=== PATIENT | female | born 1940 | race Caucasian/White ===

== ENCOUNTER → 2017-04-13 | Outpatient (CLI) | payer MEDICARE, OTHER | END | disposition home or self-care (01) | LOC: GMAH 16:32 | PROVIDERS: ATTEND Family Medicine | DX: N30.00 Acute cystitis without hematuria (principal) ==

== ENCOUNTER → 2017-08-10 | Outpatient (CLI) | payer MEDICARE, OTHER | END | disposition home or self-care (01) | LOC: YCFC.O 08:23 | PROVIDERS: ATTEND Anesthesiology Pain Medicine | DX: Z79.891 Long term (current) use of opiate analgesic (principal) ==

== ENCOUNTER 2017-08-31 05:42 | Day surgery (SDC) | payer MEDICARE, OTHER ==
[2017-08-31] MEDS ORDERED: SODIUM BICARBONATE VIAL 50 MEQ/50 ML VIAL ONE (11:30)
[2017-08-31] MEDS ORDERED: SODIUM CHLORIDE 0.9% 10 ML VIAL ONE (11:31)
[2017-08-31] MEDS ORDERED: LIDOCAINE 1% MPF 5 ML VIAL ONE (11:31)
[2017-08-31] MEDS ORDERED: methylPREDNISolone ACETATE 80 MG/ML VIAL ONE (11:31)
[2017-08-31 11:35] VITALS: O2SAT 98
[2017-08-31] MEDS ORDERED: BUPIVACAINE 0.25% INJ 30 ML VIAL INJ ONE (11:57)
[2017-08-31 13:12] VITALS: BP 130/80; TEMP 96.8
== END 2017-08-31 13:00 | disposition home or self-care (01) ==
LOC: AMB 05:42
PROVIDERS: ATTEND Anesthesiology Pain Medicine
DX: M54.5 Low back pain (principal); M47.817 Spondylosis without myelopathy or radiculopathy, lumbosacral region
CPT/HCPCS: 64493; 76000; J1030

== ENCOUNTER → 2018-01-13 | Outpatient (CLI) | payer OTHER | LOC: GMAH 11:04 | PROVIDERS: ATTEND Family Medicine | DX: I10 Essential (primary) hypertension (principal); E78.2 Mixed hyperlipidemia ==

== ENCOUNTER → 2018-08-25 | Outpatient (CLI) | payer OTHER ==
--- NOTE | 2018-08-26 08:23 | US ---
US THYROID CLINICAL STATEMENT: E04.9. . No palpable mass, no prior thyroid surgery, no prior thyroid treatment. COMPARISON: None FINDINGS: Size right thyroid lobe: 4.5 x 2.2 x 2.0 cm Size left thyroid lobe: 5.0 x 1.4 x 1.1 cm Size isthmus: 0.16 cm Estimated total number of nodules greater than or equal to 1 cm: 3. Multiple nodules in the thyroid gland bilaterally with heterogeneous echotexture. Nodule 1: Size: 1.6 x 1.1 x 1.5 cm Location: Right Mid Composition: solid or almost completely solid: 2 points Echogenicity: isoechoic: 1 point Shape: wider than tall: 0 points Margins: smooth: 0 points. Vascularity is abutting the margins. Echogenic foci: none: 0 points ACR Total Points: 3; ACR TI-RADS risk category: TR3 - mildly suspicious nodule. Nodule 2: Size: 1.0 x 1.0 x 1.0 cm Location: Right Lower Composition: solid or almost completely solid: 2 points Echogenicity: hypoechoic: 2 points Shape: wider than tall: 0 points Margins: smooth: 0 points. Hypoechoic rim. Vascularity abutting the margin. Echogenic foci: none: 0 points ACR Total Points: 4; ACR TI-RADS risk category: TR4 - moderately suspicious nodule. Nodule 3: Size: 1.5 x 0.8 x 0.6 cm Location: Left Mid Composition: cystic or completely cystic: 0 points Echogenicity: very hypoechoic: 3 points Shape: wider than tall: 0 points Margins: smooth: 0 points Echogenic foci: none: 0 points ACR Total Points: 3; ACR TI-RADS risk category: TR3 - mildly suspicious nodule. Nodule 4: Size: 0.9 x 0.8 x 0.6 cm Location: Left Lower Composition: solid or almost completely solid: 2 points Echogenicity: hypoechoic: 2 points Shape: wider than tall: 0 points Margins: smooth: 0 points Echogenic foci: none: 0 points ACR Total Points: 4; ACR TI-RADS risk category: TR4 - moderately suspicious nodule. No distinct solid mass or cyst in the surrounding soft tissues. No large calcifications or parenchymal edema. No overlying skin changes. No abnormal vascularity. IMPRESSION: 1. Nodule 1: ACR TI-RADS 2017 Category TR3. Recommend: Follow-up ultrasound in 1 year. This is according to [employer] guidelines following ACR TI-RADS 2017 recommendations. Please see below.* 2. Nodule 2: ACR TI-RADS 2017 Category TR 4. Recommend: Follow-up ultrasound in one year. 3. Nodule 3: ACR TI-RADS 2017 Category TR 3. Recommend: Follow-up ultrasound in 1 year. 4. Nodule 4: ACR TI-RADS 2017 Category TR 4. Recommend: No further follow-up.. Soft tissues around the thyroid gland are unremarkable. *ACR TI-RADS 2017 Recommendations: TR1: No FNA or follow up TR2: No FNA or follow up TR3: FNA if >/= 2.5 cm, follow up if 1.5 - 2.4 cm in 1, 3, and 5 years TR4: FNA if >/= 1.5 cm, follow up if 1.0 - 1.4 cm in 1, 2, 3, and 5 years TR5: FNA if >/= 1.0 cm, follow up if 0.5 - 0.9 cm every year for 5 years ACR TI-RADS recommends that no more than two nodules with the highest ACR TI-RADS total point should be biopsied and no more than four nodules should be followed. Electronically signed by: Simeon Arce MD 08/26/2018 8:22 AM [facility]
== END ==
LOC: US 10:30
PROVIDERS: ATTEND Family Medicine
DX: E04.9 Nontoxic goiter, unspecified (principal)

== ENCOUNTER → 2018-09-03 | Outpatient (CLI) | payer OTHER ==
--- NOTE | 2018-09-03 12:59 | CT ---
EXAM DESCRIPTION: Chest w/o Contrast : Computed Tomography. CLINICAL HISTORY: ABNORMAL PULMONARY FUNCTION STUDY, PULMONARY NODULE SUSPECTED COMPARISON: CT scan of the abdomen and pelvis on the same visit. CT scan of the chest and thorax 03/01/2010. TECHNIQUE: Spiral-axial scans at 5 x 5 mm intervals through the lungs and thorax without IV contrast. 2.5 x 5 mm lung algorithm axial reconstructions. Coronal and sagittal 2.0 Mm reconstructions. Total Exam DLP: 833.66 mGy-cm. This exam was performed according to our departmental dose-optimization program which includes automated exposure control, adjustment of the mA and/or kV according to patient size and/or use of iterative reconstruction technique; to reduce radiation dose to as low as reasonably achievable (ALARA). Nodule measurements under 10 mm are given as mean value of 3 axes diameters. FINDINGS: Lungs and large airways: 4 mm linear density associated with the anterior right horizontal fissure at the base of the right lower lobe on axial series 302, image 53. Stable since the prior study. Scarring in the inferior lingula. Mosaic densities in the bilateral lower lobe posterior recess is more on the left than right. Also seen on the prior study. No abnormal nodules. No masses or infiltrates bilaterally. Tracheobronchial cartilage calcification. Pleural spaces: No pleural effusion bilaterally or pneumothorax. Mediastinum and Mariia: Evaluation limited due to lack of IV contrast venous line in the left innominate vein terminating in the superior vena cava. No large dominant soft tissue masses or enlarged lymph nodes. Great vessels and Heart: Evaluation limited due to lack of IV contrast.. Coronary artery calcifications and stents. Atherosclerotic calcification in the proximal brachiocephalic vessels, aortic arch, and descending thoracic aorta. Soft tissues of neck base, axillae, and chest wall: Evaluation limited due to lack of IV contrast. Nodularity in the lower outer quadrant of the right breast. Contralateral left breast lower outer quadrant only partially visualized but some fibroglandular densities are noted. 1 cm nodule in the mid to upper right thyroid lobe is incompletely visualized. Upper abdomen: Please see abdominal pelvis CT scan report. Osseous structures: Spondylosis at multiple levels of the thoracic spine. No focal lytic or blastic lesions. IMPRESSION: 1. Small linear density associated with the right horizontal fissure at the base of the right upper lobe is chronic. Chronic densities in the left lower lobe and inferior lingula. No abnormal nodules, masses or infiltrates bilaterally. No pleural effusion or pneumothorax. 2. Venous access device tip is in customary location in the superior vena cava. Coronary artery calcifications and stents. 3. Questionable nodular densities lower outer quadrant of the right breast. Contralateral quadrant of the left breast is not completely visualized. Consider digital bilateral diagnostic mammography if patient has not had digital mammography in the past year. 1.0 cm incidental thyroid nodule No follow-up imaging is recommended. Reference: J Am Jess Radiol. 2015 Nov;12(2): 143-50 Electronically signed by: Simeon Arce MD 09/03/2018 12:58 PM [facility]
--- NOTE | 2018-09-03 13:35 | CT ---
EXAM DESCRIPTION: Abdomen w/o Contrast. Computed tomography. CLINICAL HISTORY: UNSPECIFIED ABD PAIN. History of previous abdominal cancer. COMPARISON: None. TECHNIQUE: Spiral-axial scans at 5 x 5 mm intervals through the abdomen and pelvis. Coronal and sagittal 2.0 mm reconstructions. No IV or oral contrast. Total DLP: 833.66 mGy - m2. This exam was performed according to our departmental dose-optimization program which includes automated exposure control, adjustment of the mA and/or kV according to patient size and/or use of iterative reconstruction technique; to reduce radiation dose to as low as reasonably achievable (ALARA). FINDINGS: Upper Abdominal organs: 1.5 cm low-density lesion in the inferior right liver is cystlike and stable. Stomach and other solid organs are negative. Calcifications or surgical hardware abutting the greater curvature of the stomach is stable. Pancreas/Gallbladder/Ducts: Surgical clips in the gallbladder fossa without fluid. Pancreas low-density and atrophic with prominent calcification of the adjacent splenic artery. Minimal density in the peripancreatic fat extending inferiorly in the midline anterior to the aorta which is stable. Common bile duct is stable Kidneys: Marked calcification of the left renal artery with significant narrowing. No radiodense stones or hydronephrosis bilaterally. Perinephric densities bilaterally symmetric and stable. Mesentery: No free fluid or free air. No significant fatty stranding or fascial thickening. Aorta: Moderate atherosclerotic calcification more distally. Also atherosclerotic calcifications in the celiac axis. Normal caliber of the outer wall. Small Bowel: Normal caliber with minimal gas. Terminal Ileum/Cecum: Minimal distention of the cecum with fecal material otherwise unremarkable. Normal caliber of the appendix. Normal surrounding density. Colon: Minimal distention of the ascending colon with fecal material which continues into the transverse colon descending colon and proximal sigmoid. No air-fluid levels. No complications. Spine and pelvic bone: Chronic depression of the T11 superior endplate but no significant retropulsion. Facet arthropathy at several levels. Hypertrophy of the superior lateral acetabular facet margins with minimal joint space narrowing. Minimal sclerosis bilateral facets of the SI joints. Pelvic soft tissues: Vaginal cuff is unremarkable. No radiodense stones in the urinary bladder. Abdominal Wall/Back Soft Tissues: Minimal anterior bulging of the midline abdominal wall at the umbilicus but no herniation. IMPRESSION: 1. No inflammatory changes or mass or fluid collections in the peritoneal or retroperitoneal cavity. Stable hepatic cyst. Stable postsurgical changes or calcification greater curvature of the stomach. 2. Atrophy of the pancreas with fatty infiltration. Stable since the prior study. There history of diabetes or other pancreatic disorder? 3. Constipation of the proximal mid and part of the distal colon. No air-fluid levels or obstruction. 4. Old depression of the T11 superior endplate. Arthrosis in the lumbar spine facets. Hypertrophy of the bilateral acetabular superior lateral facets could be causing over coverage of the femoral heads and pincer-type femoral acetabular impingement. Electronically signed by: Simeon Arce MD 09/03/2018 1:33 PM [facility]
== END ==
LOC: CT 09:50
PROVIDERS: ATTEND Family Medicine
DX: R10.9 Unspecified abdominal pain (principal); K59.00 Constipation, unspecified; K86.89 Other specified diseases of pancreas; E04.1 Nontoxic single thyroid nodule; R91.8 Other nonspecific abnormal finding of lung field; I25.10 Atherosclerotic heart disease of native coronary artery without angina pectoris; R94.2 Abnormal results of pulmonary function studies; M47.896 Other spondylosis, lumbar region; Z95.828 Presence of other vascular implants and grafts

== ENCOUNTER → 2019-05-10 | Outpatient (CLI) | payer OTHER | LOC: GMAH 10:13 | PROVIDERS: ATTEND Family Medicine | DX: I10 Essential (primary) hypertension (principal); E78.2 Mixed hyperlipidemia ==

== ENCOUNTER → 2019-07-14 | Outpatient (CLI) | payer OTHER ==
--- NOTE | 2019-07-18 14:34 | MAM ---
EXAM DESCRIPTION: 3D Screening BILATERAL Digital Mammography. CLINICAL HISTORY: 79 years Female annual screening . No complaints. No personal or family history of breast cancer. Menarche age 17. Childbirth. Postmenopausal. No HRT. Lifetime risk of developing breast cancer (Tyrer-Cuzick model)(%): 2.7. COMPARISON: Baseline study at this facility.. No prior reports available. TECHNIQUE: Bilateral CC and MLO projection full-field images, digital tomosynthesis mammographic technique. Bilateral digital 2-D full-field MLO images. CAD not available for tomosynthesis or 2-D images. FINDINGS: The breast parenchymal density pattern is: Scattered areas of fibroglandular density. No skin thickening or nipple retraction. Bilateral solitary microcalcifications. Calcified cyst in the upper lateral right breast and cluster of benign type calcifications posterior lateral left breast. Architectural distortion in the lower outer quadrant of the posterior third of the left breast at the 4:00 position near the chest wall. Microcalcifications are seen in the adjacent soft tissues. Focal asymmetry in the posterior third of the right breast near the chest wall, 8:00 to 9:00 position. IMPRESSION: BI-RADS CATEGORY: 0 - INCOMPLETE- Need additional imaging evaluation. FOLLOW-UP: Recall for additional imaging: Bilateral LM projection full-field 2-D and tomosynthesis images. Targeted bilateral breast ultrasound of the regions of interest.. Written communication concerning the IMPRESSION and Follow-up, will be mailed to the patient and referring health care provider. Electronically signed by: Simeon Arce MD 07/18/2019 2:32 PM CDT
== END ==
LOC: MAMMO 14:00
PROVIDERS: ATTEND Family Medicine
DX: Z12.31 Encounter for screening mammogram for malignant neoplasm of breast (principal)

== ENCOUNTER → 2019-09-05 | Outpatient (CLI) | payer OTHER ==
--- NOTE | 2019-09-06 17:27 | MRI ---
EXAM DESCRIPTION: Lumbar Spine w/o Contrast : Magnetic Resonance Imaging. CLINICAL HISTORY: Radiculopathy COMPARISON: Lumbar spine radiographs for August 2019. TECHNIQUE: Multiplanar, multiple standard sequences, non contrast MRI, lumbar spine. FINDINGS: L5-S1: The disc is well visualized on axial T2 series 501, image 3. Normal signal in the disc with disc space maintained. Minimal ligament thickening with normal facets. Canal patent with mild foraminal narrowing. L4-L5: Disc desiccation with disc space maintained. Posterior ligament thickening. Bilateral facet arthrosis. Mild canal narrowing. Mild bilateral foraminal narrowing. L3-L4: Minimal disc desiccation with no posterior disc bulge. Minimal ligament thickening. Arthrosis left facet. Canal patent minimal narrowing left foramen. L2-L3: Normal signal in the disc with disc space maintained. Posterior elements unremarkable. Canal and foramina are patent. L1-L2: Normal signal in the disc with disc space maintained. Posterior elements unremarkable. Canal and foramina are patent. T12-L1: Normal signal in the disc with disc space maintained. Posterior elements unremarkable. Canal and foramina are patent. Conus terminates at L1. No significant alignment abnormalities. Paravertebral soft tissues minimal paraspinal muscle atrophy.. Distal cord normal signal and caliber. Heterogeneous marrow signal in the remaining vertebral bodies and the posterior elements. Vertebral bodies are not compressed at any level. IMPRESSION: 1. No significant lumbar spine abnormalities for patient's age. Minimal disc desiccation at some levels. Minimal hypertrophic changes in posterior ligaments and facet arthrosis. No canal or foraminal stenosis. No vertebral body compression Electronically signed by: Simeon Arce MD 09/06/2019 5:25 PM [facility]
== END | disposition home or self-care (01) ==
LOC: MRI 14:01
PROVIDERS: ATTEND Family Medicine
DX: M54.16 Radiculopathy, lumbar region (principal)

== ENCOUNTER → 2019-12-01 | Outpatient (CLI) | payer OTHER | LOC: ECHO 09:59 | PROVIDERS: ATTEND Family Medicine | DX: R06.02 Shortness of breath (principal); I51.7 Cardiomegaly ==

== ENCOUNTER → 2019-12-30 | Outpatient (CLI) | payer OTHER | DX: E04.2 Nontoxic multinodular goiter (principal) ==

== ENCOUNTER → 2020-06-08 | Outpatient (CLI) | payer OTHER | END | disposition home or self-care (01) | LOC: GMA MATASK 10:28 | PROVIDERS: ATTEND Family Medicine | DX: I10 Essential (primary) hypertension (principal); E78.2 Mixed hyperlipidemia ==

== ENCOUNTER → 2020-07-13 | Outpatient (CLI) | payer OTHER | LOC: GMAE 13:05 | PROVIDERS: ATTEND Family Medicine | DX: R00.0 Tachycardia, unspecified (principal) ==

== ENCOUNTER → 2020-07-16 | Outpatient (CLI) | payer OTHER ==
--- NOTE | 2020-07-16 14:53 | MRI ---
EXAM DESCRIPTION: Brain w/o Contrast: MRI. CLINICAL HISTORY: DIZZINESS AND GIDDINESS COMPARISON: CT scan of the head July 12 TECHNIQUE: Multiplanar, high-field MRI unit, multiple diffusion sequences, multiple conventional sequences without contrast. FINDINGS: Bilateral confluent and focal regions of hyperintense FLAIR and T2-weighted signal in the periventricular white matter and sub-cortical white matter involvement of the frontoparietal and occipital lobes with relative sparing of the temporal lobes.. No hemorrhage, no cerebral edema, no midline shift.. Small foci of similar signal in the posterior bilateral basal ganglia. No hemorrhage, no cerebral edema, no mass-effect normal signal in the brainstem and cerebellar hemispheres.. Concordance of the diffusion and non-diffusion sequences with no diffusion restriction. Cortical sulci, ventricles, and other CSF spaces, and the subdural spaces are normally configured for patients age. No effacement or displacement. No midline shift. No extra-axial hemorrhage. Normal flow signal void in the major vessels of the [place], and the venous sinuses. IACs are symmetric bilaterally. Normal signal in the bilateral mastoid air cells. No mass effect in the bilateral cerebellopontine angles. Pituitary gland occupies only the base of the sella. Base of the cerebellar tonsils is just above the foramen magnum. Minimal mucoperiosteal thickening in the paranasal sinuses with no air-fluid levels.. The bony calvarium is intact. IMPRESSION: 1. Bilateral periventricular white matter and subcortical white matter signal changes relatively symmetric, and most likely related to aging and cerebral microvascular disease. No hemorrhage, no mass effect, no diffusion restriction, and no cerebral edema. No extra-axial hemorrhage or fluid collection. Similar findings in the bilateral posterior basal ganglia. 2. Minimal chronic paranasal sinusitis. Small pituitary gland. Electronically signed by: Simeon Arce MD 07/16/2020 2:51 PM CDT
== END ==
LOC: MRI 11:05
PROVIDERS: ATTEND Family Medicine
DX: R90.82 White matter disease, unspecified (principal); J32.9 Chronic sinusitis, unspecified; E23.7 Disorder of pituitary gland, unspecified; R51 Headache; H93.13 Tinnitus, bilateral

== ENCOUNTER 2020-07-29 22:20 | Emergency (ER) | payer OTHER ==
--- NOTE | 2020-07-29 22:33 | ED.PDOC ---
History of Present Illness - General Time Seen by Provider: 07/29/20 22:22 Source: patient, RN notes reviewed, Vital Signs reviewed, EMS notes reviewed, family Exam Limitations: no limitations - History of Present Illness Initial Comments: 80 yo F with hx of cancer, anxiety comes in with abrupt onset of shortness of breath. Daughter said 4 hours ago when she left she was in her normal state. Patient states she has been nauseated all day. No emesis, no abdominal pain, no chest pain. no hx of blood clots. no recent travel or immobilization. Patient states the symptoms started after her daughter left around 630 PM. no syncope. In EMS she was saturating about 80% on RA. she denies any aspiration or choking. Allergies/Adverse Reactions: Allergies Codeine Allergy (Verified 07/12/20 08:22) Home Medications: Ambulatory Orders Fluoxetine HCl 40 mg PO DAILY 07/12/20 Lovastatin 40 mg PO BEDTIME 07/12/20 amLODIPine BESYLATE [Norvasc] 5 mg PO DAILY 07/12/20 Mirtazapine [Remeron Soltab] 15 mg PO 07/30/20 Propranolol HCl [Propranolol HCl ER] 60 mg PO 07/30/20 Review of Systems - Review of Systems Constitutional: Denies: chills, fever, malaise EENTM: Denies: blurred vision, double vision, throat pain, throat swelling, mouth pain Respiratory: States: short of breath, wheezing. Denies: cough, orthopnea Cardiology: Denies: chest pain, edema, palpitations, syncope Gastrointestinal/Abdominal: States: nausea. Denies: abdominal pain, constipation, diarrhea, vomiting Genitourinary: Denies: dysuria, frequency, hematuria Musculoskeletal: Denies: back pain, joint pain, joint swelling, muscle pain Skin: Denies: dryness, lesions, rash Neurological: States: anxiety. Denies: headache, numbness, paresthesia, tingling, tremors, weakness Endocrine: Denies: unexplained weight gain, unexplained weight loss Hematologic/Lymphatic: Denies: blood clots, easy bleeding, easy bruising Past Medical History (General) - Patient Medical History Hx Seizures: No Hx Stroke: Yes Hx Dementia: No Hx Asthma: No Hx of COPD: No Hx Cardiac Disorders: No Hx Congestive Heart Failure: No Hx Pacemaker: No Hx Hypertension: Yes Hx Diabetes: No Hx Gastroesophageal Reflux: No Hx Renal Disease: No Hx Cancer: Yes - stomach Hx of HIV: No Hx Hepatitis C: No Hx MRSA: No - Vaccination History Hx Tetanus, Diphtheria Vaccination: Yes Hx Influenza Vaccination: Yes Hx Pneumococcal Vaccination: Yes - Social History Hx Tobacco Use: No Hx Alcohol Use: No Family Medical History - Family History Mother Family History: Unknown Living Status: Physical Exam - Physical Exam General Appearance: Alert, Anxious, No apparent distress, Well Developed, Well Groomed, Well Hydrated, Well Nourished Eyes, Ears, Nose, Throat Exam: PERRL/EOMI, normal ENT inspection Neck: non-tender, full range of motion, supple, normal inspection Respiratory: chest non-tender, no respiratory distress, no accessory muscle use, rales, wheezing, other - tachypnea Cardiovascular/Chest: normal peripheral pulses, regular rate, rhythm, no edema, no gallop, no JVD, no murmur Peripheral Pulses: radial,right: 2+, radial,left: 2+ Gastrointestinal/Abdominal: normal bowel sounds, non tender, soft, no organomegaly Rectal Exam: deferred Extremity: normal range of motion, non-tender, normal inspection, no pedal edema, no calf tenderness, normal capillary refill Neurologic: no motor/sensory deficits, alert, normal mood/affect, oriented x 3 Skin Exam: normal color, warm/dry Progress - Progress Progress: 07/29/20 22:34 partial ddx: aspiration, pneumonia, PE, CHF, anxiety. 07/29/20 23:20 cxr shows diffuse bilateral pneumonia. Will give decadron, albuterol and get blood cultures. will give ceftriaxone and doxycycline instead of azithromycin due to prolong qt on ekg. Informed patient I would like to transfer her, but she is currently refusing. will let her discuss with daughter. PSI score 108. 07/30/20 2330 Discussed with daughter patient okay for transfer. Called [facility], who felt patient does not meet criteria for transfer. Discuss with hospitalist here, will get additional testing. pending repeat ABG and CTA. Patient got up to use bedside commode and saturations drop to 80% on 15 L non- rebreather. Patient has been put on bipap. Next step would be intubation. Family understands and agrees to plan. [facility] has no beds. Will call [facility]. repeat blood gas shows worsening o2 sat on bipap from 63 to 59. Patient does not appear to be in resp distress however, due to critical condition, will plan on flying patient to [place]. patients vss stable saturating 94% on bipap. Repeat covid negative. will transfer to . The data reviewed when caring for this patient included: nurse notes, prior records, etc. The history and assessments from nurses notes were reviewed and considered, and the patient's home medication list was also reviewed and considered. My assessment and the results of testing completed here in the ED were discussed with the patient/family. All questions were answered, and they express understanding of my assessment and the plan. Carmela Weiss DO #[id number] - Results/Orders Results/Orders: 07/29/20 22:30 Arterial Blood Gas Stat EKG STAT 07/29/20 22:45 Albuterol Sulfate Nebs [Proventil Nebs] 2.5 mg NEB CONTINUOUS 07/29/20 23:02 BLOOD CULTURE Stat 07/30/20 00:05 ABG [Arterial Blood Gas] Stat 07/30/20 00:11 Isolation:Airborne ONCE CTA Chest [CT] Stat 07/30/20 00:15 Pulse Ox, Continuous Monitoring STAT 07/30/20 00:30 RESPIRATORY PANEL 2 Stat 07/30/20 01:39 ABG [Arterial Blood Gas] Stat 07/30/20 02:03 Sodium Chloride 0.9% 1000ML [Ns 1000 ml] 1,000 ml IVS .QD 07/31/20 00:15 Pulse Ox, Continuous Monitoring STAT 08/01/20 00:15 Pulse Ox, Continuous Monitoring STAT Laboratory Results WBC 25.4 K/mm3 (4.8-10.8) H* 07/29/20 22:25 RBC 4.89 M/mm3 (4.20-5.40) 07/29/20 22:25 Hgb 13.8 gm/dL (12.0-16.0) 07/29/20 22:25 Hct 41.5 % (36.0-47.0) 07/29/20 22:25 MCV 84.8 fl (81.0-99.0) 07/29/20 22:25 MCH 28.1 pg (27.0-31.0) 07/29/20 22:25 MCHC 33.2 g/dL (33.0-37.0) 07/29/20 22:25 RDW 15.6 % (11.5-14.5) H 07/29/20 22:25 Plt Count 355 K/mm3 (130-400) 07/29/20 22: MPV 10.6 fl (7.40-10.4) H 07/29/20 22:25 Absolute Neuts (auto) Not Reportable 07/29/20: Absolute Lymphs (auto) Not Reportable 07/29/20: Absolute Monos (auto) Not Reportable 07/29/20: Absolute Eos (auto) Not Reportable 07/29/20 22:25 Total Counted Cancelled 07/29/20: Neutrophils % Not Reportable 07/29/20: Neutrophils % (Manual) 89.0 % (42.0-78.0) H 07/29/20: Neutrophils % (Manual) Cancelled 07/29/20:25 Lymphocytes % Not Reportable 07/29/20: Lymphocytes % (Manual) 8.0 % 07/29/20: Lymphocytes % (Manual) Cancelled 07/29/20 22:25 Monocytes % Not Reportable 07/29/20: Monocytes % (Manual) 3.0 % 07/29/20:25 Monocytes % (Manual) Cancelled 07/29/20: Eosinophils % Not Reportable 07/29/20:25 Baso PT 10.1 SECONDS (9.0-10.9) 07/29/20: INR 1.02 (0.9-1.15) 07/29/20: PTT (SP) 27.6 SECONDS (21.8-31.6) 07/29/20 22: D-Dimer, Quantitative 727.0 ng/ml (131-400) H* 07/29/20 22:25 Sodium 139 mmol/L (135-145) 07/29/20 22:25 Potassium 3.7 mmol/L (3.6-5.0) 07/29/20 22:25 Chloride 107 mmol/L (101-111) 07/29/20 22: Carbon Dioxide 20 mmol/L (21-31) L 07/29/20 22: Anion Gap 15.7 (12-18) 10/11/20 22:25 BUN 13 mg/dL (7-18) 07/29/20 22:25 Creatinine 0.83 mg/dL (0.6-1.3) 07/29/20 22:25 BUN/Creatinine Ratio 15.7 (10-20) 07/29/20 22:25 Random Glucose 132 mg/dL (70-105) H 07/29/20 22:25 Serum Osmolality 279.5 mOsm/L (275-295) 07/29/20 22:25 Lactic Acid 1.5 mmol/L (0.5-2.2) 07/29/20 23:00 Calcium 9.2 mg/dL (8.4-10.2) 07/29/20 22:25 Total Bilirubin 0.9 mg/dL (0.2-1.0) 07/29/20 22:25 AST 23 IU/L (10-42) 07/29/20 22:25 ALT 22 IU/L (10-60) 07/29/20 22:25 Alkaline Phosphatase 65 IU/L (42-121) 07/29/20 22:25 LD Total 176 IU/L (91-180) 07/30/20 00:30 Creatine Kinase 33 IU/L (26-140) 07/30/20 00:30 Troponin I 0.03 ng/mL (0.01-0.05) 07/29/20 22:25 C-Reactive Protein 20.1 mg/dL (0-1.0) H* 07/30/20 00:30 B-Natriuretic Peptide 906.0 pg/ml (0-100) H* 07/29/20 22:25 Serum Total Protein 6.9 gm/dL (6.4-8.2) 07/29/20 22:25 Albumin 3.3 g/dl (3.2-5.5) 07/29/20 22:25 Globulin 3.6 gm/dL (2.3-3.5) H 07/29/20 22:25 Albumin/Globulin Ratio 0.9 (1.1-1.9) L 07/29/20 22:25 Lipase 22 U/L (22-51) 07/29/20 22:25 Urine Color Yellow (Yellow) 07/30/20 01:00 Urine Appearance Clear (Clear) 07/30/20 01:00 Urine pH 7.0 (4.5-7.8) 07/30/20 01:00 Ur Specific [place] 1.020 (1.005-1.030) 07/30/20 01:00 Urine Protein 30 mg/dL 07/30/20 01:00 Urine Glucose (UA) Negative mg/dL (Negative) 07/30/20 01:00 Urine Ketones Trace mg/dL (NEGATIVE) 07/30/20 01:00 Urine Blood Negative (Negative) 07/30/20 01:00 Urine Nitrite Negative 07/30/20 01:00 Urine Bilirubin Negative (NEGATIVE) 07/30/20 01:00 Urine Urobilinogen 0.2 mg/dL (0.2-1.0) 07/30/20 01:00 Ur Leukocyte Esterase Negative (Negative) 07/30/20 01:00 Urine RBC 0 /hpf 07/30/20 01:00 Urine WBC 1-3 /hpf 07/30/20 01:00 Ur Epithelial Cells 0-1 /hpf 07/30/20 01:00 Urine Bacteria 0 07/30/20 01:00 - EKG/XRAY/CT EKG: Sinus Comments: LAE, porlon qt, motion artificat, poor r wave progression, no acute stemi XRAY: chest - bilateral multifocal infiltrates. - Consult/PCP Time Called: 23:20 Consult/PCP: discussed with [facility] in [place] who does not feel patient needs transport Consult Reason/Comments: will discuss with hospitalist. Departure - Departure Clinical Impression: Hypoxemia Pneumonia Qualifiers: Pneumonia type: due to unspecified organism Laterality: bilateral Lung location: unspecified part of lung Qualified Code(s): J18.9 - Pneumonia, unspecified organism Time of Disposition: 02:11 Disposition: Transfer to Hospital Referrals: DAPHNEY GUERRA MD [Primary Care Provider] - 1-5 Days Home Medications: Ambulatory Orders Fluoxetine HCl 40 mg PO DAILY 07/12/20 Lovastatin 40 mg PO BEDTIME 07/12/20 amLODIPine BESYLATE [Norvasc] 5 mg PO DAILY 07/12/20 Mirtazapine [Remeron Soltab] 15 mg PO 07/30/20 Propranolol HCl [Propranolol HCl ER] 60 mg PO 07/30/20 Decision To Admit - Decistion To Admit Decision to Admit Date: 07/30/20 Decision to Admit Time: 23:38 Transfer to Outside Facility - Transfer Information Decision to Transfer Date: 07/29/20 Decision to Transfer Time: 23:20 Accepting Facility: [place]
[2020-07-29] MEDS ORDERED: ONDANSETRON INJ 4 MG/2 ML VIAL IV ONE (22:34)
[2020-07-29] MEDS ORDERED: ONDANSETRON INJ 4 MG/2 ML VIAL ONE (22:34)
[2020-07-29] MEDS ORDERED: ALBUTEROL SULFATE 2.5 MG/3 ML VIAL NEB SCH (22:45)
[2020-07-29] MEDS ORDERED: DEXAMETHASONE INJ 10 MG/ML VIAL IV ONE (22:55)
--- NOTE | 2020-07-29 23:03 | RAD ---
EXAM DESCRIPTION: XR Chest,1 View CLINICAL HISTORY: sob TECHNIQUE: Single frontal view of the chest is submitted. COMPARISON: 6 11/21/2013 FINDINGS: Heart: The cardiothoracic silhouette is within normal limits. Lungs: Multifocal opacities within the lungs bilaterally, right greater than left. Mediastinum: Thoracic aortic atherosclerosis. Pleura: Blunting of the left costophrenic angle. Bones: Intact Upper abdomen: Unremarkable IMPRESSION: Multifocal infiltrates bilaterally. Possible small left pleural effusion. Electronically signed by: Sonam Diallo MD 07/29/2020 11:01 PM CDT
[2020-07-29] MEDS ORDERED: cefTRIAXone SODIUM 2 GM in SODIUM CHL 0.9% 100ML MINI-BAG 100 ML IVPB ONE (23:19)
[2020-07-29] MEDS ORDERED: DOXYCYCLINE HYCLATE IV 100 MG in SODIUM CHLORIDE 0.9% 250ML 250 ML IVPB ONE (23:20)
[2020-07-29] MEDS ORDERED: LORazepam 0.5 MG TAB PO ONE (23:21)
[2020-07-30 01:32] VITALS: TEMP 98.7
[2020-07-30] MEDS ORDERED: SODIUM CHLORIDE 0.9% 1000ML 1,000 ML IVS PRN (02:03)
[2020-07-30 04:58] VITALS: BP 155/76; O2SAT 94
== END 2020-07-30 04:50 | disposition short-term general hospital (02) ==
LOC: ER 22:20
DX: J18.9 Pneumonia, unspecified organism (principal); R09.02 Hypoxemia; I10 Essential (primary) hypertension; F41.9 Anxiety disorder, unspecified; Z85.028 Personal history of other malignant neoplasm of stomach; Z86.73 Personal history of transient ischemic attack (TIA), and cerebral infarction without residual deficits; Z79.899 Other long term (current) drug therapy; Z88.5 Allergy status to narcotic agent; Z20.828 Contact with and (suspected) exposure to other viral communicable diseases
CPT/HCPCS: 36600; 71045; 80053; 81001; 82550; 82803; 82805; 83605; 83615; 83690; 83880; 84484; 85025; 85379; 85610; 85730; 86140; 87040; 87486; 87581; 87633; 87635; 93005; 94644; 94660; J0696; J1100; J2405; J7050; J7611

== ENCOUNTER → 2020-08-17 | Outpatient (CLI) | payer OTHER | LOC: BFHH 15:32 | PROVIDERS: ATTEND Family Medicine | DX: I48.91 Unspecified atrial fibrillation (principal); Z51.81 Encounter for therapeutic drug level monitoring ==

== ENCOUNTER → 2020-08-23 | Outpatient (CLI) | payer OTHER | LOC: BFHH 13:40 | PROVIDERS: ATTEND Family Medicine | DX: I11.0 Hypertensive heart disease with heart failure (principal); I50.33 Acute on chronic diastolic (congestive) heart failure ==

== ENCOUNTER → 2020-08-31 | Outpatient (CLI) | payer OTHER | LOC: BFHH 12:01 | PROVIDERS: ATTEND Family Medicine | DX: I50.9 Heart failure, unspecified (principal) ==

== ENCOUNTER → 2020-09-21 | Outpatient (CLI) | payer OTHER ==
--- NOTE | 2020-09-22 16:39 | RAD ---
EXAM: Chest,2 Views INDICATION: 80 years Female, other pneumonia COMPARISON: Single view of the chest 07/29/2020 FINDINGS: Two views of the chest were performed. Stable position of a central venous infusion port catheter terminating in the superior vena cava. Heart size is within normal limits. Since the prior examination of 07/29/2020, previously identified diffuse alveolar opacities have resolved. Subtle diffuse interstitial thickening bilaterally. No confluent alveolar infiltrate is identified. No pleural effusion. No pneumothorax. Osteopenia. Degenerative changes in the spine. Remote right-sided rib deformity is noted. Unremarkable appearance of the visualized upper abdomen. IMPRESSION: Diffuse alveolar infiltrates seen on the examination of 07/29/2020 have resolved. However, mild diffuse interstitial prominence persists, which could potentially represent edema or other interstitial infiltrate. No new confluent alveolar infiltrate is identified. Electronically signed by: Jackie Pelayo MD 09/22/2020 4:37 PM [facility]
== END ==
LOC: ECHO 08:43
PROVIDERS: ATTEND Family Medicine
DX: I34.2 Nonrheumatic mitral (valve) stenosis (principal); I34.0 Nonrheumatic mitral (valve) insufficiency; I35.0 Nonrheumatic aortic (valve) stenosis; I35.1 Nonrheumatic aortic (valve) insufficiency; J18.8 Other pneumonia, unspecified organism; I51.7 Cardiomegaly; R91.8 Other nonspecific abnormal finding of lung field

== ENCOUNTER → 2020-11-14 | Outpatient (CLI) | payer MEDICARE | LOC: YCFC.O 11:11 | PROVIDERS: ATTEND Family Medicine | DX: I48.91 Unspecified atrial fibrillation (principal) ==